=== PATIENT | female | born 1970 | race Caucasian/White ===

== ENCOUNTER 2016-06-24 08:24 | Emergency (ER) | payer OTHER ==
[~2016-06-24] VITALS: Ht 162.6 cm; Wt 49.9 kg
--- NOTE | 2016-06-24 08:51 | ED GI/GU/ABDOMINAL COMPLAINT ---
See Addendum History of Present Illness General Chief Complaint: Abdominal Pain/Flank Pain Stated Complaint: LOWER RT ABD PAIN Source: patient Exam Limitations: no limitations Vital Signs & Intake/Output Vital Signs & Intake/Output Vital Signs Date Time Temp Pulse Resp B/P Pulse O2 O2 Flow FiO2 Ox Delivery Rate 06/24 1721 97.5 55 18 94/51 96 Room Air 06/24 1532 97.1 59 15 102/50 95 Room Air Room Air 06/24 1428 92/58 06/24 1257 96.7 60 18 86/50 96 Room Air 06/24 1048 98.7 66 16 98/66 98 Room Air 06/24 0922 Room Air Room Air 06/24 0830 98.4 60 16 93/83 100 Room Air Allergies Coded Allergies: Sulfa (Sulfonamide Antibiotics) (Mild, HEART RACES 06/24/16) Reconcile Medications Budesonide/Formoterol Fumarate (Symbicort 80-4.5 Mcg Inhaler) 80 MCG-4.5 MCG/ ACTUATION HFA.AER.AD 2 PUF INH BID BREATHING PROBLEMS (Reported) Triage Note: PT COMPLAINS OF RLQ PAIN THAT RADIATES INTO HER RIGHT FLANK THAT STARTED 0300 STATES THAT SHE HAS HISTORY OF OVARIAN CYST AND JUST ENDED HER CYCLE. TOOK 3 MOTRIN WITH LITTLE RELIEF Triage Nurses Notes Reviewed? yes ? n Is pt currently ? No Onset: Abrupt Duration: hour(s):, sudden onset Quality/Severity: moderate, sharpness, severe Radiation: back, right shoulder Activities at Onset: none No Modifying Factors: none HPI: 46-year-old female comes into emergency room for further evaluation of sudden onset right-sided abdominal pain that began around 3 AM this morning. Pain radiates to lower back and into right shoulder. Sharp. Patient took 2 Advil and reports the pain is mildly improved. Denies any vaginal discharge. Denies any urinary symptoms. Denies any fever chills vomiting or changes in bowel movement. Previous history of . Denies any other abdominal surgeries. Denies any other associated symptoms. (IQRA BOYER,EVANS) Past History Travel History Traveled to [place] past 21 day No Medical History Any Pertinent Medical History? see below for history Neurological: NONE EENT: NONE Cardiovascular: NONE Respiratory: NONE Gastrointestinal: NONE Hepatic: NONE Renal: NONE Musculoskeletal: NONE Psychiatric: NONE Endocrine: NONE Blood Disorders: NONE Cancer(s): NONE POMOLOGIST/Reproductive: OVARIAN CYST Surgical History Surgical History: Psychosocial History What is your primary language Japanese Tobacco Use: Never used ETOH Use: denies use Illicit Drug Use: denies illicit drug use Family History Hx Contributory? No (EVANS WHITE) Review of Systems Review of Systems Constitutional: Reports: no symptoms. EENTM: Reports: no symptoms. Respiratory: Reports: no symptoms. Cardiovascular: Reports: no symptoms. GI: Reports: see HPI. Genitourinary: Reports: see HPI. Musculoskeletal: Reports: no symptoms. Skin: Reports: no symptoms. Neurological/Psychological: Reports: no symptoms. Hematologic/Endocrine: Reports: no symptoms. Immunologic/Allergic: Reports: no symptoms. All Other Systems: Reviewed and Negative (EVANS WHITE) Physical Exam Physical Exam General Appearance: well developed/nourished, no apparent distress, alert Head: atraumatic, normal appearance Eyes: Bilateral: normal appearance. Ears, Nose, Throat, Mouth: hearing grossly normal, moist mucous membrane Neck: normal inspection Respiratory: normal breath sounds, no respiratory distress Cardiovascular: regular rate/rhythm Gastrointestinal: soft, tenderness (rlq) Back: normal inspection Extremities: normal range of motion Neurologic/Psych: awake, alert, oriented x 3, normal gait, normal mood/affect Skin: intact, normal color Core Measures ACS in differential dx? No Severe Sepsis Present: No Septic Shock Present: No (EVANS WHITE) Progress Differential Diagnosis: AAA, appendicitis, biliary colic, cholecystitis, diverticulitis, ectopic , kidney stone, ovarian cyst, ovarian torsion, pancreatitis, PID/cervicitis, peptic ulcer, SBO, UTI/pyelo Diagnostic Imaging: Viewed by Me: CT Scan, Ultrasound. Discussed w/RAD: CT Scan, Ultrasound. Radiology Impression: SERVICE DATE: 06/24/16112 EXAM TYPE: US - US- TRANSVAGINAL EXAMINATION: ULTRASOUND OF THE PELVIS CLINICAL INFORMATION: Abdominal and pelvic pain. Abnormal cystic mass seen in the right adnexa on CT scan. COMPARISON: CT scan of the abdomen and pelvis dated 06/24/2016. TECHNIQUE: Transabdominal and transvaginal pelvic ultrasound. A transvaginal study was performed in addition to the transabdominal study which did not yield an adequate examination of the uterus and ovaries due to superimposed distended gas -filled loops of bowel. FINDINGS: Uterus: The uterus is anteverted and normal in size and appearance, measuring 10.1 x 4.7 x 5.2 cm in size. Cervical length is normal, measuring 3.9 cm. Small nabothian cyst is seen in the cervix. There is a small intramural hypoechoic fibroid by 1.1 x 1.5 cm mass in the uterine body, consistent with a small uterine fibroid. The endometrial stripe thickness is normal, measuring 0.8 cm in thickness. On transabdominal imaging, the endometrial stripe texture appears heterogeneous. However on transvaginal scanning, endometrial stripe appears unremarkable. Ovaries: The ovaries bilaterally are not visualized. In the right adnexa, however, a large complex cystic multiloculated mass with thick 0.5 cm internal vascular septations is seen. The mass measures approximately 8 x 5 point for by 5.8 cm in size and corresponds to the finding on CT scan. With color Doppler imaging, small amount of flow is seen within the thickened septations. Other: No significant free fluid collection seen. IMPRESSION: 1. Large complex cystic mass is seen in the right adnexa. A normal-appearing ovary separate from this mass is not visualized. Findings raise the suspicion of a complex right ovarian cystic mass, such as a cyst adenoma or cystadenocarcinoma. The appearance is not typical for a hydrosalpinx/pyosalpinx or tubo-ovarian abscess. However, a pyosalpinx and tubo-ovarian abscess remain in the differential given the clinical setting provided. Close clinical correlation is requested. 2. Left ovary not seen. 3. Small uterine fibroid. DICTATED BY: TODD MEDINA MD DATE/TIME DICTATED:06/24 PUBLIC RECORDS OFFICER:VIVIENNE DATE/TIME TRANSCRIBED:06/24/161230, SERVICE DATE: 06/24/16 EXAM TYPE: CAT - CT ABD & PELVIS W IV CONTRAST EXAMINATION: CT ABDOMEN AND PELVIS WITH CONTRAST CLINICAL INFORMATION: Right lower quadrant pain. COMPARISON: None available. TECHNIQUE: Multidetector volumetric imaging was performed of the abdomen and pelvis before and after the IV administration of 94 mL of Optiray 320 intravenous contrast. Sagittal and coronal reformatted images were obtained on the technologist's workstation. FINDINGS: Within the right hemipelvis is a tubular hypodense structure suspected to reflect hydrosalpinx though a superimposed complex right adnexal cyst cannot be excluded. The overall size of the abnormality measures up to 6.6 cm AP by 4.7 cm TV by 7.2 cm CC. This structure results in obstruction of the right ureter with associated moderate to severe right hydroureteronephrosis. The ureter distal to this abnormality appears decompressed. Accounting for calcified phleboliths, no definite ureteral calculi are identified. The right ovarian vein does not opacify however this is felt to be secondary to contrast bolus timing effects as the IVC is also not opacified. Enlarged left paraovarian and periuterine veins that can be seen in the setting of pelvic congestion syndrome. The lung bases are clear. The liver, spleen, adrenal glands, gallbladder, and pancreas are normal. The large and small bowel are normal in caliber without evidence of mechanical obstruction. No focal inflammatory changes adjacent to the large or the small bowel. The appendix is normal. No mesenteric or retroperitoneal adenopathy. There are no acute osseous abnormalities. No significant soft tissue abnormality. IMPRESSION: - Within the right hemipelvis is a large tubular hypodense structure suspected to reflect hydrosalpinx though a superimposed complex right adnexal cyst could also be present. There is free fluid adjacent to this abnormality and pyosalpinx/tubo-ovarian abscess would be of concern in the setting of leukocytosis and clinical signs of infection. A pelvic ultrasound is recommended for further assessment. - The abnormality described above results in moderate to severe right-sided hydroureteronephrosis. The ureter distal to the abnormality above appears normal in caliber. - The appendix is best identified on the coronal and sagittal reformats and appears normal. - Enlarged left paraovarian and periuterine veins that can be seen in the setting of pelvic congestion syndrome. DICTATED BY: BIANCA GREGORY MD DATE/ TIME DICTATED:06/24/161031 PUBLIC RECORDS OFFICER:VIVIENNE DATE/TIME TRANSCRIBED: 06/24/161031 Initial ED EKG: none Comments: 06/24/2016 2:57:19 PM Still waiting on urology call me back. I'm also paging the patient's [facility] doctor again because she is experiencing more pain again. More IV pain medication has been ordered. At this time I do not feel likely that the patient will manage an outpatient and she should be likely admitted as inpatient. (IQRA BOYER,EVANS) Plan of Care: Orders Procedure Date/time Status URINE 06/24 850 Complete LIPASE 06/24 850 Complete COMPREHENSIVE METABOLIC PANEL 06/24 850 Complete CBC WITHOUT DIFFERENTIAL 06/24 850 Complete URINALYSIS 06/24 834 Complete Laboratory Tests 06/24/16911: Anion Gap 12, Estimated GFR > 60, BUN/Creatinine Ratio 22.9, Glucose 85, Calcium 8.3 L, Total Bilirubin 0.5, AST 32, ALT 62 H, Alkaline Phosphatase 49, Total Protein 6.7, Albumin 3.5, Globulin 3.2, Albumin/Globulin Ratio 1.1, Lipase 96, CBC w Diff NO MAN DIFF REQ, RBC 3.76 L, MCV 87.7, MCH 29.7, RDW 14.4, MPV 7.8, Gran % 60.4, Lymphocytes % 32.4, Monocytes % 6.6, Eosinophils % 0.4, Basophils % 0.2, Absolute Granulocytes 5.2, Absolute Lymphocytes 2.8, Absolute Monocytes 0.6 , Absolute Eosinophils 0, Absolute Basophils 0, PUBS MCHC 33.8 06/24/1652: Urine Test NEGATIVE 06/24/1652: Urinalysis LIGHT H, Urine Color YEL, Urine Clarity CLEAR, Urine pH 6.0, Ur Specific [place] >= 1.030, Urine Protein NEG, Urine Ketones NEG, Urine Nitrite NEG, Urine Bilirubin NEG, Urine Urobilinogen 0.2, Ur Leukocyte Esterase NEG, Ur Microscopic SEDIMENT EXAMINED, Urine RBC 1-3, Urine WBC 1-3 H, Ur Epithelial Cells MOD H, Urine Mucus FEW, Urine Hemoglobin SMALL H, Urine Glucose NEG Comments: 06/24/2016 2:27:10 PM I have updated Fatou on her test results and our current plan (we are attempting to have her directly admitted to her [facility] for further evaluation and treatment). After first contacted the patient's [facility] PRES[facility] doctor the plan was to follow-up with the patient towards the end of her cycle for reevaluation. However we felt this was suboptimal due to the patient's secondary hydroureter. (NHUNG MISHRA,BIANCA Campo) Departure Departure Disposition: OTHER [facility] (ACUTE) Condition: Stable Clinical Impression Primary Impression: Adnexal mass Secondary Impressions: Hydroureteronephrosis, Intractable pain Referrals: KAREN BALDERRAMA (PCP/Family) Departure Forms: Customer Survey General Discharge Information Comments 06/24/2016 1:26:54 PM Patient has been reevaluated multiple times. Patient is so sprinting pain after Toradol and Dilaudid. I spoke with Dr. Guo who is the patient's primary [facility] doctor. She had an ultrasound done about a urine have to go which showed 2 separate small cysts 1 cm and 2 cm approximately on the right side. These findings are new. She reports that the patient needs very close follow-up with her in the office and she is going to refer her to a [facility] doctor oncologisT. Patient is also having hydronephrosis of the right kidney. Calls being placed to urology at this time. Case has been discussed with Dr. Fernandez. 06/24/2016 3:50:22 PM Doctor joseph does not feel comfortable accepting the patient. I spoke with guaiac test was going to accept the patient. Patient still in pain. Urology has still not called back at this point. waiting on bed. (EVANS WHITE) PA/HIGH SCHOOL HOME ECONOMICS TEACHER Co-Sign Statement Statement: ED Attending supervision documentation- [X] I saw and evaluated the patient. I have also reviewed all the pertinent lab results and diagnostic results. I agree with the findings and the plan of care as documented in the PA's/HIGH SCHOOL HOME ECONOMICS TEACHER's documentation. [] I have reviewed the ED Record and agree with the PA's/HIGH SCHOOL HOME ECONOMICS TEACHER's documentation. [] Additions or exceptions (if any) to the PAs/HIGH SCHOOL HOME ECONOMICS TEACHER's note and plan are summarized below: [] (NHUNG MISHRA,BIANCA Campo) Critical Care Note Critical Care Note Critical Care Time: 30-74 min (EVANS WHITE)
[2016-06-24 09:23] LABS: ABSOLUTE BASOPHIL COUNT 0 /CUMM (0.0-0.2); ABSOLUTE EOSINOPHIL COUNT 0 /CUMM (0.0-0.7); ABSOLUTE GRANULOCYTE CT 5.2 /CUMM (1.4-6.5); ABSOLUTE LYMPH COUNT 2.8 /CUMM (1.2-3.4); ABSOLUTE MONOCYTE COUNT 0.6 /CUMM (0.10-0.60); BASOPHIL % 0.2 % (0.0-2.0); EOSINOPHIL % 0.4 % (0-5); GRANULOCYTE % 60.4 % (42.2-75.2); MEAN CORPUSCULAR HGB 29.7 PG (27.0-31.0); MEAN CORPUSCULAR HGB CONC 33.8 G/DL (33.0-37.0); MEAN CORPUSCULAR VOLUME 87.7 FL (81.0-99.0); MEAN PLATELET VOLUME 7.8 FL (7.4-10.4); PLATELET COUNT 196 /CUMM (130-400); RBC DISTRIBUTION WIDTH 14.4 % (11.5-14.5); RED BLOOD CELL CT 3.76 /CUMM (4.20-5.40); WHITE BLOOD CELL COUNT 8.6 /CUMM (4.8-10.8)
--- NOTE | 2016-06-24 10:47 | CT SCAN REPORT ---
EXAMINATION: CT ABDOMEN AND PELVIS WITH CONTRAST CLINICAL INFORMATION: Right lower quadrant pain. COMPARISON: None available. TECHNIQUE: Multidetector volumetric imaging was performed of the abdomen and pelvis before and after the IV administration of 94 mL of Optiray 320 intravenous contrast. Sagittal and coronal reformatted images were obtained on the technologist's workstation. FINDINGS: Within the right hemipelvis is a tubular hypodense structure suspected to reflect hydrosalpinx though a superimposed complex right adnexal cyst cannot be excluded. The overall size of the abnormality measures up to 6.6 cm AP by 4.7 cm TV by 7.2 cm CC. This structure results in obstruction of the right ureter with associated moderate to severe right hydroureteronephrosis. The ureter distal to this abnormality appears decompressed. Accounting for calcified phleboliths, no definite ureteral calculi are identified. The right ovarian vein does not opacify however this is felt to be secondary to contrast bolus timing effects as the IVC is also not opacified. Enlarged left paraovarian and periuterine veins that can be seen in the setting of pelvic congestion syndrome. The lung bases are clear. The liver, spleen, adrenal glands, gallbladder, and pancreas are normal. The large and small bowel are normal in caliber without evidence of mechanical obstruction. No focal inflammatory changes adjacent to the large or the small bowel. The appendix is normal. No mesenteric or retroperitoneal adenopathy. There are no acute osseous abnormalities. No significant soft tissue abnormality. IMPRESSION: - Within the right hemipelvis is a large tubular hypodense structure suspected to reflect hydrosalpinx though a superimposed complex right adnexal cyst could also be present. There is free fluid adjacent to this abnormality and pyosalpinx/tubo-ovarian abscess would be of concern in the setting of leukocytosis and clinical signs of infection. A pelvic ultrasound is recommended for further assessment. - The abnormality described above results in moderate to severe right-sided hydroureteronephrosis. The ureter distal to the abnormality above appears normal in caliber. - The appendix is best identified on the coronal and sagittal reformats and appears normal. - Enlarged left paraovarian and periuterine veins that can be seen in the setting of pelvic congestion syndrome.
--- NOTE | 2016-06-24 12:41 | ULTRASOUND REPORT ---
EXAMINATION: ULTRASOUND OF THE PELVIS CLINICAL INFORMATION: Abdominal and pelvic pain. Abnormal cystic mass seen in the right adnexa on CT scan. COMPARISON: CT scan of the abdomen and pelvis dated 06/24/2016. TECHNIQUE: Transabdominal and transvaginal pelvic ultrasound. A transvaginal study was performed in addition to the transabdominal study which did not yield an adequate examination of the uterus and ovaries due to superimposed distended gas-filled loops of bowel. FINDINGS: Uterus: The uterus is anteverted and normal in size and appearance, measuring 10.1 x 4.7 x 5.2 cm in size. Cervical length is normal, measuring 3.9 cm. Small nabothian cyst is seen in the cervix. There is a small intramural hypoechoic fibroid by 1.1 x 1.5 cm mass in the uterine body, consistent with a small uterine fibroid. The endometrial stripe thickness is normal, measuring 0.8 cm in thickness. On transabdominal imaging, the endometrial stripe texture appears heterogeneous. However on transvaginal scanning, endometrial stripe appears unremarkable. Ovaries: The ovaries bilaterally are not visualized. In the right adnexa, however, a large complex cystic multiloculated mass with thick 0.5 cm internal vascular septations is seen. The mass measures approximately 8 x 5 point for by 5.8 cm in size and corresponds to the finding on CT scan. With color Doppler imaging, small amount of flow is seen within the thickened septations. Other: No significant free fluid collection seen. IMPRESSION: 1. Large complex cystic mass is seen in the right adnexa. A normal-appearing ovary separate from this mass is not visualized. Findings raise the suspicion of a complex right ovarian cystic mass, such as a cyst adenoma or cystadenocarcinoma. The appearance is not typical for a hydrosalpinx/pyosalpinx or tubo-ovarian abscess. However, a pyosalpinx and tubo-ovarian abscess remain in the differential given the clinical setting provided. Close clinical correlation is requested. 2. Left ovary not seen. 3. Small uterine fibroid.
[2016-06-24] MEDS ORDERED: SYMBICORT 80-10.2 GM INH (12:44)
[2016-06-24 17:21] VITALS: BP 94/51
== END 2016-06-24 19:08 | disposition short-term general hospital (02) ==
LOC: ERH 08:24
PROVIDERS: Physician Assistant Medical
DX: N85.9 Noninflammatory disorder of uterus, unspecified (principal); N13.30 Unspecified hydronephrosis; R52 Pain, unspecified
CPT/HCPCS: 74177; 81001; 81025; 96374; 96375; 96376; J1885